=== PATIENT | male | born 1965 | race African-American/Black ===

== ENCOUNTER 2024-03-22 16:03 | Emergency (ER) | payer MEDICAID ==
[~2024-03-22] VITALS: Ht 182.9 cm; Wt 122.0 kg
[2024-03-22 16:05] VITALS: PULSE 108
[2024-03-22 16:12] VITALS: BP 125/75; RESP 16; TEMP 98.2; O2SAT 98
[2024-03-22 17:03] LABS: CLARITY URINE CLEAR (CLEAR); COLOR URINE YELLOW (YELLOW); GLUCOSE URINE NEGATIVE (NEGATIVE); KETONES URINE NEGATIVE (NEGATIVE); LEUKOCYTE ESTERASE URINE 1+ (NEGATIVE); NITRITE URINE POSITIVE (NEGATIVE); OCCULT BLOOD URINE NEGATIVE (NEGATIVE); PROTEIN URINE NEGATIVE (NEGATIVE); SPECIFIC GRAVITY URINE 1.022 (1.005-1.030)
[2024-03-22 17:41] LABS: BACTERIA URINE 2+; RBC URINE 0-2 /hpf (0-2); SQUAMOUS EPITHELIAL CELL URINE FEW /lpf (RARE/1+)
[2024-03-22] MEDS ORDERED: CEFP200T13 MT (17:52)
[2024-03-25 04:11] LABS: CHLAMYDIA TRACHOMATIS NAA Negative (Negative); NEISSERIA GONORRHOEAE NAA Negative (Negative)
== END 2024-03-22 18:06 | disposition home or self-care (01) ==
LOC: ER 16:03
DX: N50.89 Other specified disorders of the male genital organs (principal); E11.9 Type 2 diabetes mellitus without complications; I25.2 Old myocardial infarction
CPT/HCPCS: 76870; 81003; 87491; 87591; 93976; 99284